=== PATIENT | male | born 1930 | race Caucasian/White ===

== ENCOUNTER 2018-05-31 17:34 | Emergency (ER) | payer MEDICARE, BC ==
--- NOTE | 2018-05-31 17:56 | EDM.PDOC ---
ED HPI GENERAL MEDICAL PROBLEM - General Chief Complaint: Lower Extremity Injury/Pain Stated Complaint: fall, right hip pain Time Seen by Provider: 05/31/18 17:40 Source of Information: Reports: Patient, EMS, Family (Daughter, Tammie), Retirement Records, Old Records ([facility] EMR. No paper hospital chart available.). 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 The patient is an overall poor historian secondary to his baseline confusion, which has apparently worsened today since previous recent initiation of Neurontin. The patient was previously on hospice for end-stage renal failure, however the patient's daughter is requesting that the patient be taken off of hospice, transferred to this facility, and also sent to [place] for further surgical evaluation. No apparent recent history of chest pain or anginal type symptoms despite patient's clinical findings in the emergency room today. No apparent significant injury from today's fall including head injury, loss of consciousness, seizure activity, etc. The patient also denies any recent fever, cough, wheezing, dyspnea, etc.. The paramedics did place a saline lock and administer 50 g of fentanyl prior to arrival to the emergency room. Onset: Today, Sudden Duration: Constant Location: Reports: Lower Extremity, Right. Denies: Head, Face, Neck, Chest, Abdomen, Back, Pelvis, Upper Extremity, Left, Upper Extremity, Right, Lower Extremity, Left, Radiates to Quality: Reports: Sharp Severity: Severe Improves with: Reports: Rest Worsens with: Reports: Movement Context: Reports: Trauma (As above) Associated Symptoms: Reports: Confusion (As above), Weakness (Stable chronic). 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(s) (As above) - Related Data Allergies Allergy/AdvReac Type Severity Reaction Status Date / Time No Known Allergies Allergy Verified 12/07/17 14:08 Home Meds: Home Meds Dutasteride [Avodart] 0.5 mg PO BEDTIME 12/07/17 [History] Isosorbide Mononitrate [Imdur] 30 mg PO DAILY 12/07/17 [History] Tamsulosin [Flomax] 0.4 mg PO BEDTIME 04/19/18 [History] Furosemide 40 mg PO BID@0800,1200 04/20/18 [History] Acetaminophen [Tylenol Extra Strength] 500 mg PO Q4H PRN #30 tablet 04/21/18 [Rx ] Betamethasone/Clotrimazole [Lotrisone] 1 gm TOP BID #1 tube 04/21/18 [Rx] hydrOXYzine HCl [hydrOXYzine] 12.5 mg PO Q8HR #60 tablet 04/21/18 [Rx] metOLazone [Zaroxolyn] 2.5 mg PO Q7D PRN #7 tablet 04/21/18 [Rx] Past Medical History HEENT History: Reports: Cataract, Glaucoma, Impaired Vision, Macular Degeneration, Retinal Detachment, Other (See Below) Other HEENT History: 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 History of right retinal detachment and bilateral posterior vitreous detachments. Cardiovascular History: Reports: Afib, Bypass, CAD, Cardiomyopathy, Heart Failure, Heart Murmur, High Cholesterol, Hypertension, MA, Other (See Below) Other Cardiovascular History: Severe coronary artery disease including non- STEMI in 2014 requiring CABG as below. History of recurrent CHF and known ischemic cardiomyopathy with combined systolic/diastolic dysfunction and last ejection fraction of only 30%. Chronic bilateral pleural effusion secondary to CHF with current chronic left thoracentesis tube drainage. Atrial fibrillation flutter postoperatively from CABG requiring cardioversion. No current Coumadin therapy for his atrial fibrillation. 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 Valve insufficiency Respiratory History: Reports: Intubation, Previous, Other (See Below). Denies: Intubation, Difficult, Pneumothorax Other Respiratory History: Chronic bilateral pleural effusions as above. 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 Musculoskeletal History: Reports: Arthritis, Back Pain, Chronic, Fracture, Neck Pain, Chronic, Other (See Below) Other Musculoskeletal History: T12 vertebral body compression fracture Endocrine/Metabolic History: Reports: Other (See Below) Other Endocrine/Metabolic History: 4 cm left adrenal adenoma by CT scan in September 2016. Hyperkalemia. Hypercalcemia. Hematologic History: Reports: Anemia, Other (See Below) Other Hematologic History: Chronic anemia secondary to renal disease - Past Surgical History HEENT Surgical History: Reports: Oral Surgery, Other (See Below) Other HEENT Surgeries/Procedures: Complete teeth extraction with complete upper and lower dentures. Left cataract surgery on 10/05/13 Cardiovascular Surgical History: Reports: Coronary Artery Bypass, Other (See Below) Other Cardiovascular Surgeries/Procedures: 3 vessel CABG on 04/18/15. GI Surgical History: Reports: Hernia, Abdominal, Other (See Below) Other GI Surgeries/Procedures: Hernia repairspecifics unknown - Past Imaging History Past Imaging History: Reports: CAT Scan (CT of the lumbar spine, head, pelvis, and C-spine on 04/19/18. CT of the chest, abdomen, and pelvis on 09/09/16.) Social & Family History - Family History Family Medical History: Unobtainable HEENT: Reports: Macular Degeneration, Other (See Below) Other HEENT Family History: Mother and brother with macular degeneration. - Caffeine Use Caffeine Use: Reports: None - Living Situation & Occupation Living situation: Reports: Extended Care Facility ([facility] [place]) Review of Systems - Review of Systems Review Of Systems: Unable To Obtain ED EXAM, GENERAL - Physical Exam Exam: See Below Exam Limited By: Altered Mental Status General Appearance: Alert, No Apparent Distress Eye Exam: Bilateral Eye: EOMI, Normal Fundi, Normal Inspection (No nystagmus. Patient wearing glasses.), PERRL Ears: Normal External Exam, Normal Canal, Hearing Grossly Normal, Normal TMs Nose: Normal Inspection, Normal Mucosa, No Blood Throat/Mouth: Normal Lips, Normal Oropharynx, Normal Voice, No Airway Compromise. No: Normal Teeth (Complete dentures uppers and lowers), Dysphagia, Perioral Cyanosis Head: Atraumatic, Normocephalic. No: Facial Swelling, Facial Tenderness Neck: Supple, Non-Tender, Full Range of Motion, Carotid Bruit (Mild bilateral carotid bruits). No: Lymphadenopathy (L), Lymphadenopathy (R), Thyromegaly Respiratory/Chest: No Respiratory Distress, No Accessory Muscle Use, Chest Non- Tender, Decreased Breath Sounds (Left base), Rales (Mild Diffuse bilateral rales particularly in the bases), Other (Thoracentesis catheter in the left lateral chest wall region with dressing in place and no evidence of drainage). No: Rhonchi, Wheezing, Pleural Rub, Retractions Cardiovascular: No Edema (Dependent edema as below), No Rub, Systolic Murmur (1/ 6 ANGEL LUIS of the mitral and aortic valves.), Irregularly Irregular. No: Gallop/S3, Gallop/S4, Friction Rub Peripheral Pulses: 1+: Dorsalis Pedis (L), Dorsalis Pedis (R), 2+: Radial (L), Radial (R) GI/Abdominal: Normal Bowel Sounds, Soft, Non-Tender, No Organomegaly, No Distention, No Abnormal Bruit, No Mass, Pelvis Stable. No: Guarding (Male) Exam: Deferred Rectal (Males) Exam: Deferred Back Exam: Normal Inspection, Full Range of Motion. No: CVA Tenderness (L), CVA Tenderness (R), Muscle Spasm Extremities: Normal Capillary Refill, Pedal Edema (+1+2 bilateral pitting pedal /pretibial edema), Limited Range of Motion (Right leg/hip with external rotation of the right leg secondary to fracture). No: Non-Tender (Severe right leg/hip pain with movement secondary to fracture), Sirena's Sign Neurological: Alert, Normal Reflexes (Negative Babinski's), Confused (Moderate) Psychiatric: Normal Affect, Normal Mood Skin Exam: Warm, Dry, Intact, No Rash, Pallor (Mild pallor). No: Diaphoretic, Ecchymosis, Petechiae, Wound/Incision Lymphatic: No Adenopathy EKG INTERPRETATION EKG Date: 05/31/18 Time: 18:23 Rhythm: A-Fib Rate (Beats/Min): 62 [place]: Normal (Neutral cardiac axis) P-Wave: Variable QRS: LBBB (QRS interval of 0.15 seconds representing a stable complete left bundle branch block/bifascicular bundle-branch block) ST-T: Other (Stable T-wave inversions in leads 1, 2, aVL and V5 through V6 with nonspecific ST changes) QT: Normal ID/PQ Interval: As above with extreme poor R-wave progression in the anterior leads Comparison: NA - No Prior EKG (12/07/17) EKG Interpretation Comments: 1. Probable wall cardiac ischemia-stable 2. Complete left bundle branch block/bifascicular bundle-branch block 3. Atrial fibrillation Course - Vital Signs Last Recorded V/S: Last Vital Signs Temp 36.2 C 05/31/18 17:54 Pulse 70 05/31/18 19:45 Resp 14 05/31/18 19:45 BP 99/58 L 05/31/18 19:45 Pulse Ox 98 05/31/18 19:45 Vital Signs - 24 hr 05/31/18 05/31/18 05/31/18 17:54 18:30 18:45 Temperature [ 36.2 C Temporal] Pulse, 60 64 64 Peripheral [ Right Pulse Oximetry] Respiratory 20 16 17 Rate Blood Pressure 88/56 L 95/53 L 78/62 L [Right Upper Arm] O2 Sat by Pulse 92 L 96 Oximetry 05/31/18 05/31/18 19:00 19:45 Temperature [ Temporal] Pulse, 70 Peripheral [ Right Pulse Oximetry] Respiratory 20 14 Rate Blood Pressure 104/53 L 99/58 L [Right Upper Arm] O2 Sat by Pulse 98 Oximetry - Orders/Labs/Meds Orders: Active Orders 24 hr Category Date Time Status Cardiac Monitoring [RC] . DIRECTED Care 05/31/18 17:57 Active EKG Documentation Completion [RC] ASDIRECTED Care 05/31/18 18:05 Active Chest 1V Frontal [CR] Stat Exams 05/31/18 18:05 Taken Hip Min 2V or 3V w Pelvis Rt [CR] Stat Exams 05/31/18 17:36 Taken Sodium Chloride 0.9% [Normal Saline] 1,000 ml Med 05/31/18 18:00 Active IV ASDIRECTED Medication Orders Sodium Chloride (Normal Saline) 1,000 mls @ 100 mls/hr IV ASDIRECTED GINETTE Last Admin: 05/31/18 18:04 Dose: 100 mls/hr Labs: Laboratory Tests 05/31/18 05/31/18 05/31/18 Range/Units 17:50 17:50 18:11 WBC 5.8 (4.0-10.2) K/uL RBC 2.38 L (4.33-5.41) M/uL Hgb 7.3 L* (13.1-16.8) g/dL Hct 23.0 L* (39.0-49.0) % MCV 96.6 (84.0-98.0) fL MCH 30.7 (28.2-33.3) pg MCHC 31.7 (31.7-36.0) g/dL RDW 15.4 H (11.2-14.1) % Plt Count 206 (150-350) K/uL Neut % (Auto) 70.7 (45.0-80.0) % Lymph % (Auto) 16.1 (10.0-50.0) % [place] % (Auto) 8.6 (2.0-14.0) % Eos % (Auto) 4.1 (0.0-5.0) % Baso % (Auto) 0.5 (0.0-2.0) % Neut # (Auto) 4.13 (1.40-7.00) K/uL Lymph # (Auto) 0.94 (0.50-3.50) K/uL Rooks # (Auto) 0.50 (0.00-1.00) K/uL Eos # (Auto) 0.24 (0.00-0.50) K/uL Baso # (Auto) 0.03 (0.00-0.20) K/uL PT (9.5-12.0) SEC INR APTT (21.0-31.3) SEC D-Dimer, Quantitative > 5000 H (0-400) ng/mL Sodium (136-145) mmol/L Potassium (3.5-5.1) mmol/L Chloride (98-107) mmol/L Carbon Dioxide (21.0-32.0) mmol/L BUN (7-18) mg/dL Creatinine (0.51-1.17) mg/dL Est Cr Clr Drug Dosing Estimated GFR (MDRD) mL/min Glucose (74-106) mg/dL Lactic Acid (0.4-2.0) mmol/L Uric Acid (2.6-7.2) mg/dL Calcium (8.5-10.1) mg/dL Phosphorus (2.6-4.7) mg/dL Magnesium (1.8-2.4) mg/dL Total Bilirubin (0.2-1.0) mg/dL AST (15-37) U/L ALT (12-78) U/L Alkaline Phosphatase (46-116) IU/L Creatine Kinase 75 (26-308) U/L Creatine Kinase Index 7.7 H (0.0-2.5) % CK-MB (CK-2) 5.80 H* (0.00-3.60) ng/mL Troponin I 0.089 H* (0.000-0.056) ng/mL NT-Pro-B Natriuret Pep 13782 H (0-125) pg/mL Total Protein (6.4-8.2) g/dL Albumin (3.4-5.0) g/dL 05/31/18 05/31/18 05/31/18 Range/Units 18:11 18:11 18:11 WBC (4.0-10.2) K/uL RBC (4.33-5.41) M/uL Hgb (13.1-16.8) g/dL Hct (39.0-49.0) % MCV (84.0-98.0) fL MCH (28.2-33.3) pg MCHC (31.7-36.0) g/dL RDW (11.2-14.1) % Plt Count (150-350) K/uL Neut % (Auto) (45.0-80.0) % Lymph % (Auto) (10.0-50.0) % [place]ook[place] % (Auto) (2.0-14.0) % Eos % (Auto) (0.0-5.0) % Baso % (Auto) (0.0-2.0) % Neut # (Auto) (1.40-7.00) K/uL Lymph # (Auto) (0.50-3.50) K/uL [place] # (Auto) (0.00-1.00) K/uL Eos # (Auto) (0.00-0.50) K/uL Baso # (Auto) (0.00-0.20) K/uL PT 12.2 H (9.5-12.0) SEC INR 1.1 APTT (21.0-31.3) SEC D-Dimer, Quantitative (0-400) ng/mL Sodium 138 (136-145) mmol/L Potassium 6.9 H* (3.5-5.1) mmol/L Chloride 104 (98-107) mmol/L Carbon Dioxide 19.8 L (21.0-32.0) mmol/L BUN 121 H* (7-18) mg/dL Creatinine 5.99 H* (0.51-1.17) mg/dL Est Cr Clr Drug Dosing TNP Estimated GFR (MDRD) 9 mL/min Glucose 119 H (74-106) mg/dL Lactic Acid 1.6 (0.4-2.0) mmol/L Uric Acid 7.2 (2.6-7.2) mg/dL Calcium 8.9 (8.5-10.1) mg/dL Phosphorus 4.3 (2.6-4.7) mg/dL Magnesium 2.6 H (1.8-2.4) mg/dL Total Bilirubin 0.5 (0.2-1.0) mg/dL AST 23 (15-37) U/L ALT 25 (12-78) U/L Alkaline Phosphatase 128 H (46-116) IU/L Creatine Kinase (26-308) U/L Creatine Kinase Index (0.0-2.5) % CK-MB (CK-2) (0.00-3.60) ng/mL Troponin I (0.000-0.056) ng/mL NT-Pro-B Natriuret Pep (0-125) pg/mL Total Protein 6.9 (6.4-8.2) g/dL Albumin 2.7 L (3.4-5.0) g/dL 05/31/18 Range/Units 18:11 WBC (4.0-10.2) K/uL RBC (4.33-5.41) M/uL Hgb (13.1-16.8) g/dL Hct (39.0-49.0) % MCV (84.0-98.0) fL MCH (28.2-33.3) pg MCHC (31.7-36.0) g/dL RDW (11.2-14.1) % Plt Count (150-350) K/uL Neut % (Auto) (45.0-80.0) % Lymph % (Auto) (10.0-50.0) % [place] % (Auto) (2.0-14.0) % Eos % (Auto) (0.0-5.0) % Baso % (Auto) (0.0-2.0) % Neut # (Auto) (1.40-7.00) K/uL Lymph # (Auto) (0.50-3.50) K/uL [place] # (Auto) (0.00-1.00) K/uL Eos # (Auto) (0.00-0.50) K/uL Baso # (Auto) (0.00-0.20) K/uL PT (9.5-12.0) SEC INR APTT 32.9 H (21.0-31.3) SEC D-Dimer, Quantitative (0-400) ng/mL Sodium (136-145) mmol/L Potassium (3.5-5.1) mmol/L Chloride (98-107) mmol/L Carbon Dioxide (21.0-32.0) mmol/L BUN (7-18) mg/dL Creatinine (0.51-1.17) mg/dL Est Cr Clr Drug Dosing Estimated GFR (MDRD) mL/min Glucose (74-106) mg/dL Lactic Acid (0.4-2.0) mmol/L Uric Acid (2.6-7.2) mg/dL Calcium (8.5-10.1) mg/dL Phosphorus (2.6-4.7) mg/dL Magnesium (1.8-2.4) mg/dL Total Bilirubin (0.2-1.0) mg/dL AST (15-37) U/L ALT (12-78) U/L Alkaline Phosphatase (46-116) IU/L Creatine Kinase (26-308) U/L Creatine Kinase Index (0.0-2.5) % CK-MB (CK-2) (0.00-3.60) ng/mL Troponin I (0.000-0.056) ng/mL NT-Pro-B Natriuret Pep (0-125) pg/mL Total Protein (6.4-8.2) g/dL Albumin (3.4-5.0) g/dL Meds: Medications Generic Name Dose Route Start Last Admin Trade Name Freq PRN Reason Stop Dose Admin Sodium Chloride 1,000 mls @ 100 mls/hr 05/31/18 18:00 05/31/18 18:04 Normal Saline IV 100 mls/hr ASDIRECTED GINETTE Administration Discontinued Medications Generic Name Dose Route Start Last Admin Trade Name Freq PRN Reason Stop Dose Admin Atropine Sulfate 0.5 mg 05/31/18 18:19 Atropine 0.1 Mg/Ml IVPUSH 05/31/18 18:20 ONETIME ONE Fentanyl 100 mcg 05/31/18 17:59 05/31/18 18:03 Sublimaze IVPUSH 05/31/18 18:00 100 mcg ONETIME ONE Administration Hydromorphone HCl 1 mg 05/31/18 19:02 05/31/18 19:06 Dilaudid IVPUSH 05/31/18 19:03 1 mg ONETIME ONE Administration Naloxone HCl 0.4 mg 05/31/18 18:15 05/31/18 18:23 Narcan IVPUSH 05/31/18 18:16 0.4 mg ONETIME ONE Administration Naloxone HCl Confirm 05/31/18 18:16 05/31/18 18:19 Narcan Administered 05/31/18 18:17 0.4 mg Dose Administration 0.4 mg .ROUTE .STK-MED ONE Naloxone HCl 2 mg 05/31/18 18:17 05/31/18 18:24 Narcan IVPUSH 05/31/18 18:18 Not Given ONETIME ONE Naloxone HCl 1 mg 05/31/18 18:18 05/31/18 18:24 Narcan IVPUSH 05/31/18 18:19 Not Given ONETIME ONE Ondansetron HCl 4 mg 05/31/18 17:59 05/31/18 18:03 Zofran IVPUSH 05/31/18 18:00 4 mg ONETIME ONE Administration - Radiology Interpretation Free Text/Narrative:: 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 Note stable heart rate in the 60s to 70s prior to transfer. Chest x-ray, portable, showed severe cardiomegaly with small left pleural effusion. Probable COPD changes with no significant pulmonary infiltrates over moderate centralized CHF. No pneumothorax. Status post CABG/medial sternotomy. X-rays of the pelvis, one view, and lateral views of the right hip shows evidence of a severely compressed femoral neck fracture with no evidence of displacement or other pelvic fracture and femoral neck at 90 Departure - Departure Time of Disposition: 20:10 Disposition: DC/Tfer to Acute Hospital 02 Condition: Poor Clinical Impression: Fracture of neck of femur, hip, CAD (coronary artery disease), CKD (chronic kidney disease) stage 5, GFR less than 15 ml/min, Anemia in CKD (chronic kidney disease), Mitral valve insufficiency, Atrial fibrillation - Discharge Information *PRESCRIPTION DRUG MONITORING PROGRAM REVIEWED*: Not Applicable *COPY OF PRESCRIPTION DRUG MONITORING REPORT IN PATIENT SHEILA: Not Applicable Forms: ED Department Discharge, Interfacility Transfer EMTALA - Problem List & Annotations (1) Fracture of neck of femur, hip SNOMED Code(s): 8964747 Code(s): S72.009A - FRACTURE OF UNSP PART OF NECK OF UNSP FEMUR, INIT Status: Acute Priority: High Onset Date: 05/31/18 Annotation/Comment:: Family is requesting lifting of NO CODE STATUS and hospice care for possible orthopedic surgery including possible pin placement as a pathology as measured. He is probably not a good candidate for a TEP. Telephone consultation at 18:[address] Luis, hospitalist at [facility] in [place], who requested that he consult their orthopedic surgeon concerning treatment plan. Some delay in hospital transfer without sequelae secondary to bed availability, the above consultation, etc. with eventual ambulance transfer with auto body mechanic apprentice accompaniment. No further treatment recommendations given. He is aware of patient's significant reaction to IV fentanyl during his emergency room care. Note the patient did initially receive the micrograms of fentanyl by the paramedics with an additional 50 g given in the emergency room. Patient developed significant bradycardia and apnea with application of O2 by nonrebreather mask and reversal of his fentanyl by means of 0.4 mg and 1 mg of Narcan. Secondary to persistent significant pain patient was given low-dose IV Dilantin, which he did tolerate well prior to transfer. No apparent sequelae from the above medication intolerance with blood work drawn prior to this reaction. His daughter is aware of the patient's reaction to fentanyl and our treatment in the emergency room. He was alert with stable vital signs at time of transfer. (2) CAD (coronary artery disease) SNOMED Code(s): 35448014 Code(s): I25.10 - ATHSCL HEART DISEASE OF [place] CORONARY ARTERY W/O ANG PCTRS Status: Chronic Priority: High Annotation/Comment:: History of coronary artery disease with positive cardiac enzymes today, including possible non-STEMI and CHF. Note previous comfort care. Said or cardiology consultation depending on his clinical course. Qualifiers: Coronary Disease-Associated Artery/Lesion type: [place] artery [place] vs. transplanted heart: [place] heart Associated angina: without angina Qualified Code(s): I25.10 - Atherosclerotic heart disease of [place] coronary artery without angina pectoris (3) CHF (congestive heart failure) SNOMED Code(s): 63869786 Code(s): I50.9 - HEART FAILURE, UNSPECIFIED Status: Acute Priority: High Annotation/Comment:: Note probable additional non-STEMI. Comfort care only. IV fluids were given with caution in the emergency room secondary to his hypotension. Patient may need dialysis. Qualifiers: Heart failure type: combined systolic and diastolic Heart failure chronicity: acute on chronic Qualified Code(s): I50.43 - Acute on chronic combined systolic (congestive) and diastolic (congestive) heart failure (4) Anemia in CKD (chronic kidney disease) SNOMED Code(s): 468348776 Code(s): N18.9 - CHRONIC KIDNEY DISEASE, UNSPECIFIED; D63.1 - ANEMIA IN CHRONIC KIDNEY DISEASE Status: Chronic Priority: High Annotation/Comment: : History of chronic anemia secondary to his renal disease, however significantly progressive anemia in comparison to blood work in April with hemoglobin of 8.8 on 04/17. Possible bleeding from hip fracture. Continue to observe closely by accepting providers. Note hypotension in the emergency room with IV fluids given as above. Qualifiers: Chronic kidney disease stage: stage 5, not on chronic dialysis Qualified Code(s): N18.5 - Chronic kidney disease, stage 5; D63.1 - Anemia in chronic kidney disease (5) Confusion SNOMED Code(s): 810191706 Code(s): R41.0 - DISORIENTATION, UNSPECIFIED Status: Chronic Priority: Medium Annotation/Comment:: Some increased confusion recently as above. Continue to observe closely by accepting physicians and regular providers. Note Neurontin therapy has apparently been discontinued with recent worsening confusion with this medication. (6) Hyperkalemia SNOMED Code(s): 99938680 Code(s): E87.5 - HYPERKALEMIA Status: Chronic Priority: High Annotation /Comment:: Chronic renal failure. Patient currently on dialysis. (7) Hypoalbuminemia SNOMED Code(s): 319948747 Code(s): E88.09 - OTH DISORDERS OF PLASMA-PROTEIN METABOLISM, NEC Status: Acute Priority: Medium Onset Date: 05/31/18 Annotation/Comment:: Observe for now. Note NO CODE STATUS. (8) Osteoarthritis SNOMED Code(s): 452030045 Code(s): M19.90 - UNSPECIFIED OSTEOARTHRITIS, UNSPECIFIED SITE Status: Chronic Priority: Medium Annotation/Comment:: Otherwise stable by history Qualifiers: Osteoarthritis location: multiple joints Osteoarthritis type: primary Qualified Code(s): M15.0 - Primary generalized (osteo)arthritis (9) Hypertension SNOMED Code(s): 03182606 Code(s): I10 - ESSENTIAL (PRIMARY) HYPERTENSION Status: Acute Priority: High Annotation/Comment:: Significant hypotension in the emergency room, including systolic blood pressures in the 70s prior to administration of second dose of IV fentanyl. Note IV fluids started at 100 mL per hour with overall good response after reversal of his IV fentanyl as above. Qualifiers: Hypertension type: essential hypertension Qualified Code(s): I10 - Essential (primary) hypertension (10) Mitral valve insufficiency SNOMED Code(s): 45896500 Code(s): I34.0 - NONRHEUMATIC MITRAL (VALVE) INSUFFICIENCY Status: Chronic Priority: Medium Annotation/Comment:: Stable by history and clinical exam. Qualifiers: Cardiac valve disease etiology: etiology unspecified Qualified Code(s): I34.0 - Nonrheumatic mitral (valve) insufficiency (11) Atrial fibrillation SNOMED Code(s): 95474181 Code(s): I48.91 - UNSPECIFIED ATRIAL FIBRILLATION Status: Chronic Priority: Medium Annotation/Comment:: No Current anticoagulation therapy. Note significant bradycardia secondary to fentanyl reaction as above. IV atropine was on standby, however did not need to be given. Note NO CODE STATUS. Qualifiers: Atrial fibrillation type: paroxysmal Qualified Code(s): I48.0 - Paroxysmal atrial fibrillation (12) CKD (chronic kidney disease) stage 5, GFR less than 15 ml/min SNOMED Code(s): 896918359 Code(s): N18.5 - CHRONIC KIDNEY DISEASE, STAGE 5 Status: Chronic Priority : Medium Annotation/Comment:: End-stage with daughter lifting hospice care today as above - Problem List Review Problem List Initiated/Reviewed/Updated: Yes - My Orders Last 24 Hours: My Active Orders 05/31/18 17:36 Hip Min 2V or 3V w Pelvis Rt [CR] Stat 05/31/18 17:57 Cardiac Monitoring [RC] . DIRECTED 05/31/18 18:00 Sodium Chloride 0.9% [Normal Saline] 1,000 ml IV ASDIRECTED 05/31/18 18:05 EKG Documentation Completion [RC] ASDIRECTED Chest 1V Frontal [CR] Stat - Assessment/Plan Last 24 Hours: My Active Orders 05/31/18 17:36 Hip Min 2V or 3V w Pelvis Rt [CR] Stat 05/31/18 17:57 Cardiac Monitoring [RC] . DIRECTED 05/31/18 18:00 Sodium Chloride 0.9% [Normal Saline] 1,000 ml IV ASDIRECTED 05/31/18 18:05 EKG Documentation Completion [RC] ASDIRECTED Chest 1V Frontal [CR] Stat Assessment:: As above Plan: As above. Extensive precautions were given to the patient and his daughter, who are in agreement with [email or web address] treatment plan. 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
[2018-05-31] MEDS ORDERED: Ondansetron 4 MG/2 ML SDV IVPUSH ONE (17:59)
[2018-05-31] MEDS ORDERED: fentaNYL 100 MCG/2 ML SDV IVPUSH ONE (17:59)
[2018-05-31] MEDS ORDERED: Sodium Chloride 0.9% 1,000 ML IV SCH (18:00)
[2018-05-31] MEDS ORDERED: Naloxone 2 MG/2 ML Syringe IVPUSH ONE ×2 (18:17→18:18)
[2018-05-31] MEDS: Naloxone 0.4 MG/ML SDV ONE (18:19)
[2018-05-31] MEDS ORDERED: Atropine 0.1 MG/ML 10 ML Syringe IVPUSH ONE (18:19)
[2018-05-31] MEDS: Naloxone 0.4 MG/ML SDV IVPUSH ONE ×2 (18:19→18:23)
[2018-05-31 18:28] LABS: CHLORIDE,CL 104 mmol/L (98-107); SODIUM,NA 138 mmol/L (136-145)
[2018-05-31] MEDS ORDERED: HYDROmorphone 1 MG/ML Syringe IVPUSH ONE (19:02)
[2018-05-31 19:46] VITALS: BP 99/58
[2018-06-02] MEDS: Naloxone 0.4 MG/ML SDV ONE (12:02)
== END 2018-05-31 20:15 ==
LOC: LL.ED 17:34
DX: S72.001A Fracture of unspecified part of neck of right femur, initial encounter for closed fracture (principal); I34.0 Nonrheumatic mitral (valve) insufficiency; I48.91 Unspecified atrial fibrillation; I13.2 Hypertensive heart and chronic kidney disease with heart failure and with stage 5 chronic kidney disease, or end stage renal disease; N18.5 Chronic kidney disease, stage 5; I50.9 Heart failure, unspecified; D63.1 Anemia in chronic kidney disease; Z79.899 Other long term (current) drug therapy; W19.XXXA Unspecified fall, initial encounter
CPT/HCPCS: 36415; 71045; 80053; 82550; 82553; 83605; 83735; 83880; 84100; 84484; 84550; 85025; 85379; 85610; 85730; 93005; 96361; 96374; 96375; 99285; J1170; J2310; J2405; J3010; J7030